=== PATIENT | female | born 1980 | race Caucasian/White ===

== ENCOUNTER 2016-07-29 08:10 | Inpatient (IN) | payer MEDICAID, OTHER ==
[~2016-07-29] VITALS: Ht 162.6 cm; Wt 88.7 kg
[2016-07-29] VITALS (11 sets, daily range): BP systolic 102–140; BP diastolic 53–82; PULSE 71–101; RESP 7–20; Ht 162.6 cm; Wt 88.7 kg
[~2016-07-29 08:10] MED LIST: CEFAZOLIN 1 GM INJ ONE; SUCCINYLCHOLINE CHLORIDE 100 MG/5 ML SYG IV ONE
[2016-07-29] MEDS ORDERED: CEFAZOLIN 2 GM/50 ML (PMX) 50 ML IVPB ONE (09:00)
[2016-07-29] MEDS ORDERED: SOD CHLORIDE 0.9% 1,000 ML IV ONE (09:00)
[2016-07-29 09:02] LABS: ADD SCAN DIFF NO
[2016-07-29 09:19] LABS: BASOPHILS % 0.4 % (0.0-2.0); EOSINOPHILS # 0.1 10^3/ul (0.0-0.5); EOSINOPHILS % 0.8 % (0.0-7.0); HEMATOCRIT 33.9 % (37.0-47.0); HEMOGLOBIN 10.8 g/dl (12.0-16.0); LYMPHOCYTES # 2.7 10^3/ul (0.8-2.9); LYMPHOCYTES % 27.6 % (15.0-51.0); MEAN CORPUSCULAR HEMOGLOBIN 25.9 pg (29.0-33.0); MEAN CORPUSCULAR HGB CONC 31.9 g/dl (32.0-37.0); MEAN CORPUSCULAR VOLUME 81.3 fl (82.0-101.0); MEAN PLATELET VOLUME 10.1 fl (7.4-10.4); MONOCYTE # 0.4 10^3/ul (0.3-0.9); NEUTROPHIL # 6.4 10^3/ul (1.6-7.5); NEUTROPHILS % 66.9 % (39.0-77.0); PLATELET COUNT 448 10^3/UL (140-415); RED BLOOD COUNT 4.17 10^6/ul (4.20-5.40); RED CELL DISTRIBUTION WIDTH 15.1 % (11.5-14.5); WHITE BLOOD COUNT 9.6 10^3/ul (4.8-10.8)
[2016-07-29 09:26] LABS: INR 0.98
[2016-07-29 09:27] LABS: PARTIAL THROMBOPLASTIN TIME 28.7 Sec (25.0-35.0)
[2016-07-29] MEDS ORDERED: TRAM50TA2 PO (09:28)
[2016-07-29] MEDS ORDERED: METF500T4 PO (09:28)
[2016-07-29 09:30] LABS: CALCIUM 9.2 mg/dl (8.4-10.2); CREATININE 0.58 mg/dl (0.44-1.00); POTASSIUM 4.4 mmol/L (3.5-5.1)
[2016-07-29] MEDS ORDERED: D5W-0.45 NACL + KCL 20 MEQ 1,000 ML IV SCH (11:08)
[2016-07-29] MEDS ORDERED: ACETAMINOPHEN 1000MG/100ML IV 100 ML IVPB PRN (11:30)
[2016-07-29] MEDS ORDERED: ONDANSETRON 4 MG INJ IV PRN (11:30)
[2016-07-29] MEDS ORDERED: FENTAnyl 50 MCG/ML VIAL ONE ×2 (11:51→13:30)
[2016-07-29] MEDS ORDERED: PROPOFOL 20 ML ONE (11:51)
[2016-07-29] MEDS ORDERED: MIDAZOLAM 1 MG/ML 2 ML INJ ONE ×2 (11:51→13:49)
[2016-07-29] MEDS ORDERED: ROCURONIUM 50 MG INJ ONE (11:51)
[2016-07-29] MEDS ORDERED: DEXAMETHASONE 4 MG/ML 1 ML INJ ONE (11:52)
[2016-07-29] MEDS ORDERED: ONDANSETRON 4 MG INJ ONE (11:52)
[2016-07-29] MEDS ORDERED: ROPIVACAINE 0.5 % 30 ML VIAL ONE (11:58)
[2016-07-29] MEDS ORDERED: DIPHENHYDRAMINE 50 MG INJ IV PRN (12:30)
[2016-07-29] MEDS ORDERED: KETOROLAC 30 MG INJ IV ONE (12:30)
[2016-07-29] MEDS ORDERED: EPHEDrine SULFATE 50 MG/5 ML SYG IV PRN (12:30)
[2016-07-29] MEDS ORDERED: hydrALAzine 20 MG INJ IV PRN (12:30)
[2016-07-29] MEDS ORDERED: HYDROmorphONE (0.2 MG/ML) 10ML SYG IV PRN ×2 (12:30)
[2016-07-29] MEDS ORDERED: MEPERIDINE 25 MG INJ IV PRN (12:30)
[2016-07-29] MEDS ORDERED: GLYCOPYRROLATE 0.4 MG INJ ONE (13:35)
[2016-07-29] MEDS ORDERED: NEOSTIGMINE 3 MG/3 ML SYRINGE ONE (13:35)
[2016-07-29] MEDS: FENTAnyl 50 MCG/ML VIAL IV PRN ×3 (13:58→14:26)
[2016-07-29] MEDS: ONDANSETRON 4 MG INJ IV PRN ×2 (13:58→14:05)
[2016-07-29] MEDS: HYDROmorphONE (0.2 MG/ML) 10ML SYG IV PRN ×5 (13:58→14:36)
[2016-07-29] MEDS: morphine 2 MG INJ IV PRN ×3 (15:09→23:19)
[2016-07-29] MEDS ORDERED: GLUCOSE GEL 15 GRAM TUBE BUCCAL PRN (16:00)
[2016-07-29] MEDS ORDERED: DEXTROSE 50% 50 ML SYRINGE IV PRN ×2 (16:00)
[2016-07-29] MEDS ORDERED: GLUCOSE GEL 15 GRAM TUBE PO PRN ×2 (16:00)
[2016-07-29] MEDS ORDERED: GLUCAGON 1 MG INJ IM PRN (16:00)
--- NOTE | 2016-07-29 16:37 | OPR ---
DATE OF OPERATION: 07/29/2016 PREOPERATIVE DIAGNOSIS: Symptomatic cholelithiasis. POSTOPERATIVE DIAGNOSIS: Symptomatic cholelithiasis. OPERATION PERFORMED: Laparoscopic cholecystectomy. ANESTHESIA: General. ANESTHESIOLOGIST: AMANDA TORRES MD. SURGEON: Guillermo Oh MD BOILER COVERER HELPER: Jose Morocho MD INDICATIONS FOR PROCEDURE: The patient is a 36-year-old female with multiple previous episodes of r ight upper quadrant pain and ultrasound confirming multiple gallstones within the gallbladder. Fay ent was counseled as to the risks versus benefits of cholecystectomy. She consented and was schedul ed for surgery. DESCRIPTION OF PROCEDURE: The patient was brought to the operating theater, placed under general en dotracheal tube anesthesia. The abdomen was prepped and draped in usual sterile fashion. A 2-cm in cision was made in the midline just above the umbilicus. Subcutaneous tissue was dissected with cau virgilio down to the anterior rectus sheath. 0 Vicryl stay sutures were placed on either side of the li cecily alba. The linea alba was incised and the abdomen was entered without difficulty. Garth trocar was then placed in the standard fashion and the abdomen was insufflated to a pressure of 14 mmHg wi th carbon dioxide. Laparoscope was introduced. Attention was directed to the right upper quadrant where a distended gallbladder was identified. Just prior to final closure, a #10 flat Luis Antonio-Jackson drain was placed in the gallbladder fossa and brought out the lateral port site in the standard fas hion and secured in place with 2-0 nylon suture. Three accessory ports were then placed under direc t vision in standard fashion. Through the lateral port sites, the gallbladder was grasped at the ndus in the neck and retracted cephalad and lateral collateral. The peritoneum overlying the gallbl adder was then incised both medially and laterally to facilitate mobilization of the triangle of Christiano ot. With meticulous dissection, the cystic duct was isolated. Two clips were placed distally. It was then transected with the endovascular DEION stapler. Subsequently, the cystic artery was isolated , triply clipped and transected. The gallbladder was dissected out of the gallbladder fossa using c autery. Prior to final transection, irrigation and inspection took place. Minimal bleeding was con trolled with cautery. Gallbladder was transected. The laparoscope was moved to the 12-mm subcostal port site and the gallbladder was retrieved from the abdomen through the umbilical port site using the gallbladder retrieval bag. Garth trocar was placed back in the abdomen. The abdomen was reins ufflated. Laparoscope was moved back to the umbilical port site. Final irrigation and inspection t ook place. There was no evidence of bleeding. Three accessory ports were then removed under direct vision. Again, there was no evidence of bleeding. Finally, the umbilical port was removed. The m idline umbilical fascia was reapproximated with 0 Prolene sutures in [id number] fashion. After closing the midline abdominal fascia with the Prolene sutures, all wounds were irrigated with Betad ine and skin incisions were reapproximated with skin danielle. Patient tolerated the procedure well. Estimated blood loss was 30 mL. There were no complications and the patient was transported in [facility] condition to recovery room. Dictated By: GUILLERMO CRUZ/DARIO Conf#: [id number] DID#: [id number]
[2016-07-29] MEDS ORDERED: traMADol 50 MG TAB PO PRN ×2 (17:00→21:00)
[2016-07-29] MEDS: metFORMIN 500 MG TAB PO SCH (17:12)
[2016-07-29] MEDS: 1/2 NS + KCL 20 MEQ 1,000 ML IV SCH (17:13)
[2016-07-29] MEDS: INSULIN ASPART [NOVOLOG] 3 ML PEN SC SCH ×2 (17:16→21:00)
[2016-07-29] MEDS ORDERED: INSULIN ASPART [NOVOLOG] 3 ML PEN SC SCH (18:00)
--- NOTE | 2016-07-29 19:21 | HP ---
DATE OF ADMISSION: 07/29/2016 CHIEF COMPLAINT AND HISTORY OF PRESENT ILLNESS: Patient is a 36-year-old female with history of di abetes, who saw Dr. Oh as an outpatient due to recurrent episodes of right upper quadrant pain. Ultrasound of the abdomen revealed gallstones. Patient was brought into the hospital today and unde rwent laparoscopic cholecystectomy. Patient denies any chest pain, no shortness of breath. No repo rted headache, dizziness, syncope. No history of fever or chills. No recent history of cholecyst itis. No history of dysuria or hematuria. Patient has postoperative pain. REVIEW OF SYSTEMS: Rest is unremarkable. PAST SURGICAL HISTORY: Status post bilateral carpal tunnel surgery. ALLERGIES: NONE. SOCIAL HISTORY: No smoking, no alcohol. FAMILY HISTORY: Mother has hypertension and diabetes. PHYSICAL EXAMINATION: GENERAL: The patient is conscious, awake, alert, fairly oriented. VITAL SIGNS: Temperature 98.4, pulse 88, blood pressure 103/59, O2 saturation 98% on 2 liters nasal cannula, respirations 20. HEENT: Conjunctivae and lids are normal. Oropharynx clear. NECK: Supple. No mass, no thyromegaly. LUNGS: Clear to auscultation. CARDIOVASCULAR: S1, S2 normal. No murmur. ABDOMEN: Soft. Status post laparoscopic cholecystectomy. EXTREMITIES: No leg edema. NEUROLOGIC: The patient is awake, alert, fairly oriented, with no gross focal deficit. IMPRESSION: 1. Symptomatic gallstones, status post laparoscopic cholecystectomy. 2. Diabetes mellitus. 3. Anemia. PLAN: Patient admitted on medical floor. Patient will be started on IV fluids and will also start her on metformin 500 b.i.d. Patient will be started on sliding scale insulin. Will use SCDs for de ep venous thrombosis prophylaxis. Patient will have Tylenol, morphine, and Ultram for pain control, depending upon severity. Further recommendations will depend on the patient's hospital course. Ch emistry was unremarkable with sodium 140, potassium 4.4. Last glucose 121, calcium 9.2. Dictated By: BASHIR MCCLENDON/NTS Conf#: [id number] DID#: [id number]
[2016-07-30] MEDS: 1/2 NS + KCL 20 MEQ 1,000 ML IV SCH ×4 (03:46→23:00)
[2016-07-30] MEDS: morphine 2 MG INJ IV PRN ×3 (03:46→20:42)
[2016-07-30] MEDS: ACETAMINOPHEN/CODEINE #3 TAB PO PRN ×2 (07:59→18:35)
[2016-07-30 08:00] VITALS: BP 115/64; RESP 20
[2016-07-30] MEDS: INSULIN ASPART [NOVOLOG] 3 ML PEN SC SCH ×4 (08:15→21:00)
[2016-07-30] MEDS: metFORMIN 500 MG TAB PO SCH ×2 (08:19→17:59)
[2016-07-30 12:48] LABS: ADD SCAN DIFF NO
[2016-07-30 12:51] LABS: BASOPHILS % 0.2 % (0.0-2.0); EOSINOPHILS % 0.2 % (0.0-7.0); HEMATOCRIT 29.7 % (37.0-47.0); HEMOGLOBIN 9.5 g/dl (12.0-16.0); LYMPHOCYTES # 3.6 10^3/ul (0.8-2.9); LYMPHOCYTES % 24.4 % (15.0-51.0); MEAN CORPUSCULAR HEMOGLOBIN 26.3 pg (29.0-33.0); MEAN CORPUSCULAR VOLUME 82.3 fl (82.0-101.0); MEAN PLATELET VOLUME 9.8 fl (7.4-10.4); MONOCYTE # 0.7 10^3/ul (0.3-0.9); MONOCYTES % 4.5 % (0.0-11.0); NEUTROPHIL # 10.3 10^3/ul (1.6-7.5); NEUTROPHILS % 70.2 % (39.0-77.0); PLATELET COUNT 435 10^3/UL (140-415); RED BLOOD COUNT 3.61 10^6/ul (4.20-5.40); RED CELL DISTRIBUTION WIDTH 15.3 % (11.5-14.5); WHITE BLOOD COUNT 14.6 10^3/ul (4.8-10.8)
[2016-07-30 13:09] LABS: INR 1.01; PARTIAL THROMBOPLASTIN TIME 27.5 Sec (25.0-35.0); PROTIME 13.3 Sec (12.2-14.2)
--- NOTE | 2016-07-30 16:09 | PN ---
Date/Time of Note Date/Time of Note DATE: 07/30/16 TIME: 16:07 Assessment/Plan VTE Prophylaxis VTE Prophylaxis Intervention: SCD's Lines/Catheters IV [facility]from [facility] Saline Lock Urinary Cath still in place: No Assessment/Plan Chief Complaint/Hosp Course MPRESSION: 1. Symptomatic gallstones, status post laparoscopic cholecystectomy. 2. Diabetes mellitus. 3. Anemia. Problems: Subjective 24 Hr Interval Summary Free Text/Dictation Patient's complains of abdominal pain, denies weakness. Moderate amount of drainage from SANTANA. Exam/Review of Systems Vital Signs Vitals Vital Signs Date Time Temp Pulse Resp B/P Pulse Ox O2 Delivery O2 Flow Rate FiO2 07/30/16 08:00 98.8 99 20 115/64 97 07/29/16 19:30 Nasal Cannula 07/29/16 15:41 3.0 Intake and Output 07/29/16 07/29/16 07/30/16 15:00 23:00 07:00 Intake Total 600 ml 950 ml 1580 ml Output Total 125 ml 10 ml 810 ml Balance 475 ml 940 ml 770 ml Exam Constitutional: alert, oriented Psych: no complaints Head: atraumatic, normocephalic Eyes: nl conjunctiva ENMT: nl external ears & nose Neck: non-tender, supple Respiratory: clear to auscultation Cardiovascular: nl pulses, regular rate and rhythm Gastrointestinal: other (Status post surgery), soft, tender Musculoskeletal: nl extremities to inspection Extremities: normal pulses Neurological: CLINICAL PROFESSOR II-XII intact Results Result Diagram: 07/30/16 1233 07/29/16 0855 Results 24 hrs Laboratory Tests Test 07/29/16 17:15 07/29/16 22:18 07/30/16 08:03 07/30/16 12:06 Bedside Glucose 198 152 130 109 Test 07/30/16 12:33 Activated Partial Thromboplast Time 27.5 Basophils # 0.0 Basophils % 0.2 Eosinophils # 0.0 Eosinophils % 0.2 Hematocrit 29.7 L Hemoglobin 9.5 L INR International Normalized Ratio 1.01 Lymphocytes # 3.6 H Lymphocytes % 24.4 Mean Corpuscular Hemoglobin 26.3 L Mean Corpuscular Hemoglobin Concent 32.0 Mean Corpuscular Volume 82.3 Mean Platelet Volume 9.8 Monocytes # 0.7 Monocytes % 4.5 Neutrophils # 10.3 H Neutrophils % 70.2 Nucleated Red Blood Cells # 0.0 Nucleated Red Blood Cells % 0.0 Platelet Count 435 H Prothrombin Time 13.3 Prothrombin Time Ratio 1.0 Red Blood Count 3.61 L Red Cell Distribution Width 15.3 H White Blood Count 14.6 #H Medications Medications Current Medications Ondansetron HCl (Zofran Inj) 4 mg Q6H PRN IV NAUSEA AND/OR VOMITING; Start at 11:30 Morphine Sulfate (morphine) 2 mg Q1H PRN IV PAIN Last administered on 13:27; Admin Dose 2 MG; Start 07/29/16 at 11:30 Acetaminophen/ Codeine Phosphate 1 tab 1 tab Q6H PRN PO PAIN Last administered on 07/30/16 07:59; Admin Dose 1 TAB; Start 07/29/16 at 11:30 Acetaminophen (Ofirmev 1000mg/ 100ml Iv) 100 ml @ 400 mls/hr Q6H PRN IVPB PAIN ; Start 07/29/16 at 11:30 Miscellaneous Information 1 ea NOTE XX ; Start 07/29/16 at 16:00 Glucose (Glutose) 15 gm Q15M PRN PO DECREASED GLUCOSE; Start 07/29/16 at 16:00 Glucose (Glutose) 22.5 gm Q15M PRN PO DECREASED GLUCOSE; Start 07/29/16 at 16: 00 Dextrose (D50w Syringe) 25 ml Q15M PRN IV DECREASED GLUCOSE; Start 07/29/16 at 16:00 Dextrose (D50w Syringe) 50 ml Q15M PRN IV DECREASED GLUCOSE; Start 07/29/16 at 16:00 Glucagon (Glucagen) 1 mg Q15M PRN IM DECREASED GLUCOSE; Start 07/29/16 at 16:00 Glucose (Glutose) 15 gm Q15M PRN BUCCAL DECREASED GLUCOSE; Start 07/29/16 at 16 :00 Tramadol HCl 50 mg 50 mg Q4 PRN PO PAIN Last administered on 07/30/16 11:24; Admin Dose 50 MG; Start 07/29/16 at 21:00 Potassium Chloride/Sodium Chloride (1/2 NS + KCl 20 Meq) 1,000 ml @ 100 mls/hr Q10H IV Last administered on 07/30/16 14:45; Admin Dose 100 MLS/HR; Start at 17:00 MAGO LINDSEY Jul 30, 2016 16:08
[2016-07-30 17:15] VITALS: BP 112/59; PULSE 73; RESP 20
--- NOTE | 2016-07-30 17:37 | PN ---
DATE: 07/30/2016 SUBJECTIVE: Complains of some nausea, more pain in the right side of the abdomen. OBJECTIVE: VITAL SIGNS: Temperature 98.8, heart rate 99 and regular, respirations 20, blood pressure 115/64, s aturation 97% on room air. LABORATORY: WBC 14,600 with 70% segmented, hemoglobin slightly dropped to 9.5, hematocrit 29.7. ABDOMEN: Soft. There is drainage from the lateral portal site, it has drained a little bit of bloo dy drainage, it soaked 3 sponges. The dressing has been changed by the nurse. The patient has tole rated liquid diet. ASSESSMENT: Postop day #1 postop laparoscopic cholecystectomy with placement of Luis Antonio-Jackson drain in the gallbladder fossa. The hemoglobin is slightly dropped, not significantly. The patient has a little bit of high pulse, rate is up to 99, has slight nausea. PLAN: Prefer to keep the patient overnight, repeat CBC in the morning. If it is stable, the patien t can be discharged tomorrow morning. Advance diet today to full liquid diet. Dictated By: MARION YEE MD PS/DARIO Conf#: [id number] DID#: [id number]
[2016-07-30 20:00] VITALS: BP 109/58; PULSE 66; RESP 20
[2016-07-31] MEDS: morphine 2 MG INJ IV PRN ×2 (02:15→12:03)
[2016-07-31] MEDS: 1/2 NS + KCL 20 MEQ 1,000 ML IV SCH ×3 (02:16→13:22)
[2016-07-31 05:42] LABS: ADD SCAN DIFF NO
[2016-07-31 06:04] LABS: POTASSIUM 4.3 mmol/L (3.5-5.1)
[2016-07-31 06:07] LABS: CREATININE 0.67 mg/dl (0.44-1.00)
[2016-07-31 06:08] LABS: CALCIUM 8.4 mg/dl (8.4-10.2)
[2016-07-31 06:57] LABS: BASOPHILS % 0.4 % (0.0-2.0); EOSINOPHILS # 0.1 10^3/ul (0.0-0.5); EOSINOPHILS % 1.2 % (0.0-7.0); HEMATOCRIT 28.7 % (37.0-47.0); HEMOGLOBIN 8.9 g/dl (12.0-16.0); LYMPHOCYTES # 3.7 10^3/ul (0.8-2.9); LYMPHOCYTES % 36.7 % (15.0-51.0); MEAN CORPUSCULAR HEMOGLOBIN 26.2 pg (29.0-33.0); MEAN CORPUSCULAR VOLUME 84.4 fl (82.0-101.0); MEAN PLATELET VOLUME 10.4 fl (7.4-10.4); MONOCYTE # 0.5 10^3/ul (0.3-0.9); MONOCYTES % 4.5 % (0.0-11.0); NEUTROPHIL # 5.7 10^3/ul (1.6-7.5); NEUTROPHILS % 56.7 % (39.0-77.0); PLATELET COUNT 398 10^3/UL (140-415); RED CELL DISTRIBUTION WIDTH 15.7 % (11.5-14.5); WHITE BLOOD COUNT 10.1 10^3/ul (4.8-10.8)
[2016-07-31 07:27] VITALS: BP 132/60; RESP 18
[2016-07-31] MEDS: ACETAMINOPHEN/CODEINE #3 TAB PO PRN ×2 (07:53→16:29)
[2016-07-31] MEDS: metFORMIN 500 MG TAB PO SCH ×2 (07:53→17:09)
[2016-07-31] MEDS: INSULIN ASPART [NOVOLOG] 3 ML PEN SC SCH ×3 (07:59→17:09)
--- NOTE | 2016-07-31 13:11 | PN ---
DATE: 07/31/2016 Postop day #2. SUBJECTIVE: Feels better, has had a bowel movement, tolerating diet. OBJECTIVE: VITAL SIGNS: Temperature 98.8, pulse 69, respiratory rate 18, blood pressure 132/60, and saturation 99%. ABDOMEN: Soft. Luis Antonio-Jackson drain is draining serosanguineous fluid. From the site of the draina ge exit of the Luis Antonio-Jackson tubing, there is a bit of oozing of serosanguineous fluid. No gross bl eeding. LABORATORY DATA: Hemoglobin on admission preoperatively was 10.8, hematocrit 33.9, postop was 9.5 a nd 29.7 first day, and today is 8.9 and 28.7, I assume this is a just hemodilution and account for t he variation in the lab figures. I do not conclude that there is any bleeding inside the abdomen. PLAN: The patient can be discharged home because she is tolerating diet. The pain is under control . No nausea and had a bowel movement and Luis Antonio-Jackson is functioning properly. No bleeding. The patient will be followed by Dr. Oh in his office. The patient is going to call and make an appoi ntment for that. The nurses are going to teach her how to take care of the Luis Antonio-Jackson. Dictated By: MARION العلي/DARIO Conf#: [id number] DID#: [id number]
[2016-07-31] MEDS ORDERED: HYDR-906 PO (15:57)
== END 2016-07-31 17:30 | disposition home or self-care (01) | DRG 419 ==
LOC: SDS 08:10 → MS2 14:57 → SDS 07-30 16:07 → MS2 07-30 16:07
PROVIDERS: ADMIT Surgery Surgical Oncology; ATTEND Surgery Surgical Oncology
PROC: 0FT44ZZ Resection of Gallbladder, Percutaneous Endoscopic Approach (ICD-10-PCS; principal; 2016-07-29 11:00)
DX: K80.20 Calculus of gallbladder without cholecystitis without obstruction (principal); E11.9 Type 2 diabetes mellitus without complications; D64.9 Anemia, unspecified
CPT/HCPCS: 80048; 82962; 84703; 85025; 85610; 85730; 88304; J0330; J0690; J1100; J1170; J1815; J1885; J2175; J2250; J2270; J2405; J2710; J2795; J3010; J3480